=== PATIENT | female | born 1990 | race African-American/Black ===

== ENCOUNTER 2023-05-19 22:08 | Emergency (ER) | payer OTHER ==
[~2023-05-19] VITALS: Ht 170.2 cm; Wt 68.5 kg
[2023-05-20] MEDS ORDERED: METH-1164 PO (07:21)
[2023-05-20 07:29] VITALS: BP 132/89; TEMP 99; O2SAT 100
== END 2023-05-20 07:40 | disposition home or self-care (01) ==
LOC: M ED 22:08
DX: M54.9 Dorsalgia, unspecified (principal); M54.2 Cervicalgia; V43.62XA Car passenger injured in collision with other type car in traffic accident, initial encounter